=== PATIENT | female | born 1985 | race Caucasian/White ===

== ENCOUNTER 2021-08-22 06:45 | Day surgery (SDC) | payer MEDICAID, SELFPAY ==
[~2021-08-22] VITALS: Ht 157.5 cm; Wt 93.0 kg
[2021-08-22 07:33] LABS: HCG,QUAL RESULT NEGATIVE (NEGATIVE)
[2021-08-22] MEDS ORDERED: MEPERIDINE 100 MG INJ. 100 MG/ML VIAL ONE (07:49)
[2021-08-22] MEDS ORDERED: SIMETHICONE 40 MG/0.6 ML ML ONE (07:49)
[2021-08-22] MEDS ORDERED: MIDAZOLAM HCL 5 MG/5 ML VIAL ONE (07:50)
[2021-08-22] MEDS ORDERED: ACETAMINOPHEN 325 MG TABLET PO ONE (10:30)
[2021-08-22] MEDS ORDERED: ACETAMINOPHEN 325 MG TABLET ONE (10:32)
[2021-08-22 12:00] VITALS: BP_SYST 132
== END 2021-08-22 11:00 | disposition home or self-care (01) ==
LOC: SDS 06:45 → SMU 06:47 → EDSEX 07:30 → SDS 11:00
PROVIDERS: ATTEND Internal Medicine Gastroenterology
DX: R19.4 Change in bowel habit (principal); E66.01 Morbid (severe) obesity due to excess calories; K64.8 Other hemorrhoids; Z98.84 Bariatric surgery status; Z79.899 Other long term (current) drug therapy; Z20.822 Contact with and (suspected) exposure to COVID-19; Z68.41 Body mass index [BMI] 40.0-44.9, adult
CPT/HCPCS: 45378; 84703; 99152; G0378; J2175; J2250; U0003

== ENCOUNTER 2023-05-20 14:25 | Emergency (ER) | payer OTHER, MEDICAID ==
[~2023-05-20] VITALS: Ht 157.5 cm; Wt 88.5 kg
[2023-05-20 14:41] VITALS: BP_SYST 130; PULSE 95; RESP 20; TEMP 98.7; O2SAT 99
[2023-05-20] MEDS ORDERED: IBUP-1969 PO (16:19)
[2023-05-20] MEDS ORDERED: TRAM50TA2 PO (16:19)
[2023-05-20] MEDS ORDERED: IBUPROFEN 800 MG TABLET PO ONE (16:30)
[2023-05-20] MEDS ORDERED: HYDROcodone/ACETAMIN 10-325 MG TAB PO ONE (16:30)
[2023-05-20 16:52] VITALS: BP_SYST 126; PULSE 81; RESP 18; TEMP 98.7; O2SAT 99
[2023-05-21] MEDS ORDERED: IBUP-1971 PO (21:18)
[2023-05-21] MEDS ORDERED: ONDA-8 TL (21:18)
== END 2023-05-20 16:52 | disposition home or self-care (01) ==
LOC: SED 14:25
DX: S13.4XXA Sprain of ligaments of cervical spine, initial encounter (principal); S43.402A Unspecified sprain of left shoulder joint, initial encounter; S20.212A Contusion of left front wall of thorax, initial encounter; Z79.899 Other long term (current) drug therapy; V89.0XXA Person injured in unspecified motor-vehicle accident, nontraffic, initial encounter; Y93.89 Activity, other specified; Y92.89 Other specified places as the place of occurrence of the external cause; Y99.8 Other external cause status
CPT/HCPCS: 71045; 72040-TC; 73030; 99284

== ENCOUNTER 2023-05-21 19:33 | Emergency (ER) | payer OTHER, MEDICAID ==
[~2023-05-21] VITALS: Ht 167.6 cm; Wt 88.5 kg
[~2023-05-21 19:33] MED LIST: IBUP-1969 PO; TRAM50TA2 PO
[2023-05-21 19:45] VITALS: BP_SYST 122; PULSE 77; RESP 16; TEMP 98; O2SAT 98
[2023-05-21] MEDS ORDERED: ONDANSETRON 4 MG ODT TAB PO ONE (20:00)
[2023-05-21] MEDS ORDERED: KETOROLAC TROMETHAMINE 30 MG VIAL IM ONE (21:15)
[2023-05-21] MEDS ORDERED: ONDA-8 TL (21:18)
[2023-05-21] MEDS ORDERED: IBUP-1971 PO (21:18)
[2023-05-21 21:37] VITALS: BP_SYST 120; PULSE 63; RESP 18; TEMP 98; O2SAT 98
== END 2023-05-21 21:37 | disposition home or self-care (01) ==
LOC: SED 19:33
DX: S06.0X0A Concussion without loss of consciousness, initial encounter (principal); Z79.899 Other long term (current) drug therapy; V89.2XXA Person injured in unspecified motor-vehicle accident, traffic, initial encounter; Y93.89 Activity, other specified; Y92.89 Other specified places as the place of occurrence of the external cause; Y99.8 Other external cause status
CPT/HCPCS: 99285; 70450; 76376; 96372; Q0162; J1885

== ENCOUNTER 2023-06-02 18:47 | Emergency (ER) | payer MEDICAID, OTHER ==
[~2023-06-02] VITALS: Ht 167.6 cm; Wt 86.2 kg
[~2023-06-02 18:47] MED LIST changes: +IBUP-1971 PO; +ONDA-8 TL
[2023-06-02 18:56] VITALS: BP_SYST 123; PULSE 83; RESP 18; TEMP 98.2; O2SAT 98
[2023-06-02 21:30] LABS: BILIRUBIN,URINE NEGATIVE (NEGATIVE); BLOOD, URINE 2+ (NEGATIVE); COLOR,URINE YELLOW (YELLOW); GLUCOSE,URINE NEGATIVE (NEGATIVE); KETONES,URINE TRACE (NEGATIVE); LEUKOCYTE ESTERASE ,URINE 1+ (NEGATIVE); NITRITE, URINE NEGATIVE (NEGATIVE); PH,URINE 5.5 (5.0-8.0); PROTEIN URINE NEGATIVE (NEGATIVE); UROBILINOGEN,URINE 0.2 (0.2-1.0)
[2023-06-02] MEDS ORDERED: ACETAMINOPHEN 500 MG TABLET PO ONE (21:30)
[2023-06-02 21:36] LABS: CLARITY/URINE CLOUDY (CLEAR)
[2023-06-02 22:03] LABS: BACTERIA,URINE FEW /HPF (None Seen); YEAST,URINE Few /HPF (None Seen)
[2023-06-02 22:39] LABS: BASOPHILS % (AUTO) 0.3 % (0.0-2.0); EOSINOPHILS # (AUTO) 0.1 K/uL (0.0-0.4); EOSINOPHILS % (AUTO) 0.9 % (0.0-4.0); HEMATOCRIT 39.2 % (36-48); HEMOGLOBIN 12.8 g/dL (12.0-16.0); LYMPHOCYTES # (AUTO) 2.9 K/uL (1.0-5.5); LYMPHOCYTES % (AUTO) 38.8 % (20.5-51.5); MEAN CORPUSCULAR HEMOGLOBIN 26 pg (27-31); MEAN CORPUSCULAR HGB CONC 33 % (32-36); MEAN CORPUSCULAR VOLUME 81 fL (79.0-98.0); MONOCYTES # (AUTO) 0.6 K/uL (0.0-1.0); MONOCYTES % (AUTO) 7.8 % (1.7-9.3); NEUTROPHILS # (AUTO) 3.9 K/uL (1.8-7.7); NEUTROPHILS % (AUTO) 52.2 % (40.0-70.0); PLATELET COUNT (AUTO) 165 K/uL (130-430); RED BLOOD CELL COUNT(AUTO) 4.86 MIL/uL (4.2-6.2); RED CELL DISTRIBUTION WIDTH 13.8 % (9.0-15.0); WHITE BLOOD COUNT (AUTO) 7.5 K/uL (4.8-10.8)
[2023-06-02 22:49] LABS: CALCIUM 7.7 mg/dL (8.4-11.0); CREATININE 0.58 mg/dL (0.55-1.30); POTASSIUM 3.5 mmol/L (3.5-5.1)
[2023-06-02 23:00] LABS: ALBUMIN 3.2 g/dL (3.4-4.8); TOTAL BILIRUBIN 0.3 mg/dL (0.0-1.0); TOTAL PROTEIN, SERUM 6.6 g/dL (6.4-8.3)
[2023-06-03] MEDS ORDERED: NITR-85 PO (00:06)
[2023-06-03 00:33] VITALS: BP_SYST 132; PULSE 85; RESP 18; TEMP 98.3; O2SAT 97
== END 2023-06-03 00:23 | disposition home or self-care (01) ==
LOC: SED 18:47
DX: R51.9 Headache, unspecified (principal); R42 Dizziness and giddiness; R30.0 Dysuria; Z79.899 Other long term (current) drug therapy
CPT/HCPCS: 36415; 76801; 76817; 80053; 81000; 81025; 83690; 84702; 85025; 87086; 99284

== ENCOUNTER 2023-06-19 09:58 | Emergency (ER) | payer MEDICAID ==
[~2023-06-19] VITALS: Ht 157.5 cm; Wt 88.5 kg
[~2023-06-19 09:58] MED LIST changes: +NITR-85 PO
[2023-06-19 10:11] VITALS: BP_SYST 136; PULSE 76; RESP 16; TEMP 97.7; O2SAT 99
[2023-06-19 10:30] VITALS: BP_SYST 139; PULSE 79; RESP 18; TEMP 97.9; O2SAT 99
[2023-06-19 10:47] LABS: BASOPHILS % (AUTO) 0.3 % (0.0-2.0); HEMATOCRIT 41.5 % (36-48); HEMOGLOBIN 13.3 g/dL (12.0-16.0); LYMPHOCYTES # (AUTO) 1.8 K/uL (1.0-5.5); MEAN CORPUSCULAR HEMOGLOBIN 26 pg (27-31); MEAN CORPUSCULAR HGB CONC 32 % (32-36); MEAN CORPUSCULAR VOLUME 80 fL (79.0-98.0); MONOCYTES # (AUTO) 0.4 K/uL (0.0-1.0); MONOCYTES % (AUTO) 8.4 % (1.7-9.3); NEUTROPHILS # (AUTO) 2.7 K/uL (1.8-7.7); NEUTROPHILS % (AUTO) 54.3 % (40.0-70.0); PLATELET COUNT (AUTO) 167 K/uL (130-430); RED BLOOD CELL COUNT(AUTO) 5.19 MIL/uL (4.2-6.2); RED CELL DISTRIBUTION WIDTH 13.5 % (9.0-15.0)
[2023-06-19 10:51] LABS: BILIRUBIN,URINE NEGATIVE (NEGATIVE); BLOOD, URINE 3+ (NEGATIVE); COLOR,URINE YELLOW (YELLOW); GLUCOSE,URINE NEGATIVE (NEGATIVE); KETONES,URINE NEGATIVE (NEGATIVE); LEUKOCYTE ESTERASE ,URINE TRACE (NEGATIVE); NITRITE, URINE NEGATIVE (NEGATIVE); PH,URINE 6.5 (5.0-8.0); PROTEIN URINE NEGATIVE (NEGATIVE); UROBILINOGEN,URINE 0.2 (0.2-1.0)
[2023-06-19 11:06] LABS: PROTHROMBIN TIME 10.5 SECS (9.5-12.5)
[2023-06-19 11:07] LABS: CLARITY/URINE SLIGHTLY HAZY (CLEAR)
[2023-06-19 11:20] LABS: BACTERIA,URINE None Seen /HPF (None Seen); RBC,URINE 20-50 /HPF (0-3)
[2023-06-19] MEDS ORDERED: ACETAMINOPHEN 500 MG TABLET PO ONE (12:15)
== END 2023-06-19 12:25 | disposition home or self-care (01) ==
LOC: SED 09:58
DX: O03.9 Complete or unspecified spontaneous abortion without complication (principal); O26.891 Other specified pregnancy related conditions, first trimester; Z3A.01 Less than 8 weeks gestation of pregnancy; Z79.899 Other long term (current) drug therapy
CPT/HCPCS: 36415; 81000; 81001; 81015; 81025; 84702; 85025; 85610-TC; 85730-TC; 86900; 86901; 99283

== ENCOUNTER 2023-06-22 08:06 | Emergency (ER) | payer MEDICAID ==
[~2023-06-22] VITALS: Ht 157.5 cm; Wt 88.9 kg
[2023-06-22 08:25] VITALS: RESP 18
[2023-06-22 08:33] LABS: BASOPHILS % (AUTO) 0.5 % (0.0-2.0); EOSINOPHILS # (AUTO) 0.1 K/uL (0.0-0.4); EOSINOPHILS % (AUTO) 1.2 % (0.0-4.0); HEMATOCRIT 39.6 % (36-48); HEMOGLOBIN 12.5 g/dL (12.0-16.0); LYMPHOCYTES # (AUTO) 1.8 K/uL (1.0-5.5); LYMPHOCYTES % (AUTO) 35.5 % (20.5-51.5); MEAN CORPUSCULAR HEMOGLOBIN 25 pg (27-31); MEAN CORPUSCULAR HGB CONC 32 % (32-36); MEAN CORPUSCULAR VOLUME 80 fL (79.0-98.0); MONOCYTES # (AUTO) 0.4 K/uL (0.0-1.0); MONOCYTES % (AUTO) 8.6 % (1.7-9.3); NEUTROPHILS # (AUTO) 2.7 K/uL (1.8-7.7); NEUTROPHILS % (AUTO) 54.2 % (40.0-70.0); PLATELET COUNT (AUTO) 151 K/uL (130-430); RED BLOOD CELL COUNT(AUTO) 4.93 MIL/uL (4.2-6.2); RED CELL DISTRIBUTION WIDTH 13.7 % (9.0-15.0)
[2023-06-22] MEDS ORDERED: MISO200T PO (09:08)
[2023-06-22] MEDS ORDERED: TRAM50TA2 PO ×3 (09:11→09:42)
[2023-06-22 09:51] VITALS: BP_SYST 135; PULSE 76; RESP 15; TEMP 97.6; O2SAT 99
== END 2023-06-22 09:50 | disposition home or self-care (01) ==
LOC: SED 08:06
DX: O03.9 Complete or unspecified spontaneous abortion without complication (principal); O26.891 Other specified pregnancy related conditions, first trimester; Z3A.01 Less than 8 weeks gestation of pregnancy; Z79.899 Other long term (current) drug therapy
CPT/HCPCS: 36415; 84702; 85025; 99283